=== PATIENT | male | born 1980 | race Caucasian/White ===

== ENCOUNTER 2021-06-20 18:01 | Emergency (ER) | payer BC ==
[2021-06-20 18:14] VITALS: BP 163/111; PULSE 96; RESP 18; TEMP 98.2
[2021-06-20] MEDS ORDERED: FLUORESCEIN STRIPS 1 MG STRIP BOTH EYES ONE (19:54)
[2021-06-20] MEDS ORDERED: PROPARACAINE 0.5% OPHTH DROPS 15 ML BTL BOTH EYES SCH (20:00)
[2021-06-20] MEDS ORDERED: ERYTHROMYCIN 5 MG/GM OPHTH OINT 1 GM TUBE LEFT EYE STA (20:13)
--- NOTE | 2021-06-20 20:18 | ED ---
General Adult HPI - General Chief complaint: Eye Problems Stated complaint: Metal in L Eye Time Seen by Provider: 06/20/21 19:54 Source: patient, RN notes reviewed, old records reviewed Mode of arrival: ambulatory Limitations: no limitations - History of Present Illness Initial comments: 40-year-old male with left eye foreign body. Patient was working under a camper, he got a suspected foreign body in the left eye he was wearing safety glasses at the time. He's had pain with eye movement since the onset. No other injuries reported. - Related Data Allergies Allergy/AdvReac Type Severity Reaction Status Date / Time No Known Allergies Allergy Verified 06/20/21 18:14 Review of Systems ROS Statement: Those systems with pertinent positive or pertinent negative responses have been documented in the HPI. ROS Other: All systems not noted in ROS Statement are negative. Past Medical History Past Medical History: No Reported History History of Any Multi-Drug Resistant Organisms: None Reported Past Surgical History: No Surgical Hx Reported Past Psychological History: No Psychological Hx Reported Smoking Status: Never smoker Past Alcohol Use History: Occasional Past Drug Use History: None Reported General Exam Limitations: no limitations General appearance: alert, in no apparent distress Head exam: Present: atraumatic, normocephalic Eye exam: Present: PERRL, conjunctival injection, other (No corneal abrasion, negative fluorescein exam, negative Theodora's test) ENT exam: Present: normal exam Neck exam: Present: normal inspection Respiratory exam: Present: normal lung sounds bilaterally. Absent: respiratory distress, wheezes Cardiovascular Exam: Present: regular rate, normal rhythm GI/Abdominal exam: Present: soft. Absent: distended, tenderness, guarding Extremities exam: Present: normal inspection, normal capillary refill. Absent: pedal edema Neurological exam: Present: alert, oriented X3. Absent: CN II-XII intact, motor sensory deficit Psychiatric exam: Present: normal affect, normal mood Skin exam: Present: warm, dry, intact. Absent: cyanosis, diaphoretic Course Vital Signs 06/20/21 18:10 Temperature 98.2 F Pulse Rate 96 Respiratory 18 Rate Blood Pressure 163/111 O2 Sat by Pulse 97 Oximetry Procedures - Forgein Body Removal Eye Site: Left Location in eye(s): inner surface of the upper lid Anesthetic Used: Proparacaine Eye Exam Technique: Donald Lamp, Fluorescein Foreign Body Suspected: Metal Forgein Body Removal Technique: Cotton Swab, Irrigation Remaining Debris: No Patient Tolerated: no complications Medical Decision Making - Medical Decision Making 40-year-old male with foreign body in the left eye. Very small piece of metal was removed from the undersurface of the upper lid with cotton swab and irrig ation. There is no corneal abrasion. The eye was irrigated and rechecked there was no persistent foreign body visualized. Patient given erythromycin ointment. Will follow-up with primary care physician. Disposition Clinical Impression: Foreign body of left eye Disposition: HOME SELF-CARE Condition: Good Instructions (If sedation given, give patient instructions): Eye Foreign Body (ED) Is patient prescribed a controlled substance at d/c from ED?: No Referrals: None,Stated [Primary Care Provider] - 1-2 days Yohan Khan MD [STAFF PHYSICIAN] - 1-2 days Time of Disposition: 20:18
== END 2021-06-20 20:43 | disposition home or self-care (01) ==
LOC: EC 18:01
DX: T15.92XA Foreign body on external eye, part unspecified, left eye, initial encounter (principal); W22.8XXA Striking against or struck by other objects, initial encounter
CPT/HCPCS: 67938; 99283

== ENCOUNTER 2024-08-01 19:35 | Emergency (ER) | payer BC ==
[2024-08-01 19:57] VITALS: BP 131/93; RESP 18; TEMP 98.6
--- NOTE | 2024-08-01 20:17 | ED ---
General Adult HPI - General Chief complaint: ENT Stated complaint: Difficulty swallowing, Throat pain Time Seen by Provider: 08/01/24 20:02 Source: patient, RN notes reviewed, old records reviewed Mode of arrival: ambulatory - History of Present Illness Initial comments: 43-year-old male with choking episode requiring the Heimlich maneuver and sensation of upper esophageal obstruction. Patient is able to talk but he is not able to swallow his secretions. This occurred just prior to arrival. He has had prior issues similar to this in the past but not requiring medical att ention. He has not previously had upper GI endoscopy. No preceding symptoms. - Related Data Allergies Allergy/AdvReac Type Severity Reaction Status Date / Time No Known Allergies Allergy Verified 08/01/24 19:57 Review of Systems ROS Statement: Those systems with pertinent positive or pertinent negative responses have been documented in the HPI. ROS Other: All systems not noted in ROS Statement are negative. Past Medical History Past Medical History: No Reported History History of Any Multi-Drug Resistant Organisms: None Reported Past Surgical History: No Surgical Hx Reported Past Psychological History: No Psychological Hx Reported Smoking Status: Never smoker Past Alcohol Use History: Occasional Past Drug Use History: None Reported General Exam General appearance: alert, in no apparent distress Head exam: Present: atraumatic, normocephalic Eye exam: Present: normal appearance, PERRL ENT exam: Present: normal oropharynx, other (Patient sitting up, spitting his se cretions) Respiratory exam: Present: normal lung sounds bilaterally. Absent: respiratory distress, wheezes, stridor Cardiovascular Exam: Present: regular rate, normal rhythm GI/Abdominal exam: Present: soft. Absent: distended, tenderness Neurological exam: Present: alert, oriented X3 Psychiatric exam: Present: anxious Skin exam: Present: warm, dry, intact Course Vital Signs 08/01/24 19:53 Temperature 98.6 F Pulse Rate 71 Respiratory 18 Rate Blood Pressure 131/93 O2 Sat by Pulse 98 Oximetry Medical Decision Making - Medical Decision Making Was pt. sent in by a medical professional or institution (, MARINE, CHECK WRITER SALESPERSON, urgent care, hospital, or usp...) When possible be specific @ -No Did you speak to anyone other than the patient for history (EMS, parent, family, police, friend...)? What history was obtained from this source @ -No Did you review nursing and triage notes (agree or disagree)? Why? @ -I reviewed and agree with nursing and triage notes Were old charts reviewed (outside hosp., previous admission, EMS record, old EKG, old radiological studies, urgent care reports/EKG's, usp records)? Report findings @ -No old charts were reviewed Differential Diagnosis esophageal food impaction, upper airway obstruction, esophageal mass or stricture EKG interpreted by me (3pts min.). @ -As above X-rays interpreted by me (1pt min.). @ -None done CT interpreted by me (1pt min.). @CT is negative for upper airway obstruction or proximal esophageal obstruction there is fluid pooling in the lower esophagus on CT neck U/S interpreted by me (1pt. min.). @ -None done What testing was considered but not performed or refused? (CT, X-rays, U/S, labs)? Why? @ -None What meds were considered but not given or refused? Why? @ -None Did you discuss the management of the patient with other professionals (professionals i.e. , PA, CHECK WRITER SALESPERSON, lab, RT, psych nurse, social service technician, probate lawyer, teacher, information security officer, bilingual case manager)? Give summary @ -No Was smoking cessation discussed for >3mins.? @ -No Was critical care preformed (if so, how long)? @ -No Were there social determinants of health that impacted care today? How? (Homelessness, low income, unemployed, alcoholism, drug addiction, transportation, low edu. Level, literacy, decrease access to med. care, long-term, rehab)? @ -No Was there de-escalation of care discussed even if they declined (Discuss DNR or withdrawal of care, Hospice)? DNR status @ -No What co-morbidities impacted this encounter? (DM, HTN, Smoking, COPD, CAD, Cancer, CVA, ARF, Chemo, Hep., AIDS, mental health diagnosis, sleep apnea, morbid obesity)? @ -[Previous episodes of esophageal food impaction and choking Was patient admitted / discharged? Hospital course, mention meds given and route, prescriptions, significant lab abnormalities, going to OR and other pertinent info. @ -43-year-old male with suspected esophageal food impaction. Patient maintaining airway, no stridor. He is sitting up spitting his secretions. I did perform CT of the upper airway and esophagus which showed fluid pooling in the mid to lower esophagus. Patient given glucagon and Valium and is able to pass obstruction and able to drink normally. I do recommend he follows with gastroenterology regarding this recurrent symptom. Undiagnosed new problem with uncertain prognosis? @ -[No Drug Therapy requiring intensive monitoring for toxicity (Heparin, Nitro, Insulin, Cardizem)? @ -No Were any procedures done? @ -No Diagnosis/symptom? @Esophageal food impaction Acute, or Chronic, or Acute on Chronic? @Acute Uncomplicated (without systemic symptoms) or Complicated (systemic symptoms)? @ -Default Side effects of treatment? @ -No Exacerbation, Progression, or Severe Exacerbation? @ -No Poses a threat to life or bodily function? How? (Chest pain, [place], [place], pneumonia, PE, COPD, DKA, ARF, appy, cholecystitis, CVA, Diverticulitis, Homicidal, Suicidal, threat to staff... and all critical care pts) @ -No Disposition Clinical Impression: Esophageal obstruction due to food impaction Disposition: HOME SELF-CARE Condition: Good Instructions (If sedation given, give patient instructions): Esophageal Foreign Body (ED) Is patient prescribed a controlled substance at d/c from ED?: No Referrals: Nonstaff,Physician [Primary Care Provider] - 1-2 days April Baugh MD [STAFF PHYSICIAN] - 1-2 days Time of Disposition: 20:52
[2024-08-01] MEDS: GLUCAGON 1 MG/ML VIAL IVP STA (20:31)
--- NOTE | 2024-08-01 21:07 | CT ---
EXAMINATION TYPE: CT soft tissue neck wo con DATE OF EXAM: 08/01/2024 8:27 PM COMPARISON: None. CLINICAL INDICATION: Male, 43 years old with history of Possible esophageal foreign body, pt choked o n a piece of meat tonight, cannot stop spitting/coughing up TECHNIQUE: Standard enhanced CT of the neck. Axial sections with coronal and sagittal reformats were obtained. Contrast used: mL of , (None if empty) Oral contrast used: (None if empty) CT DLP: 248.7 mGycm, Automated exposure control for dose reduction was used. FINDINGS: Brain: Visualized portions are grossly unremarkable. Orbits: Unremarkable Sinuses: Grossly unremarkable. Spaces of the neck: Clear and symmetric. Musculoskeletal: No acute osseous pathology. Degenerative disc disease changes of the visualized spin e are present. Elongated styloid processes bilaterally. Lymph nodes: Multiple nonenlarged lymph nodes are seen along both anterior chains of the neck. Vascular structures: Visualized major arteries are patent without evidence of aneurysm. Thoracic Inlet/airway: Airway is patent. Layering debris within the visualized esophagus with fluid air level. No obvious obstruction in the upper esophagus. Soft tissues/Thyroid: Thyroid and remainder of the soft tissues are unremarkable. IMPRESSION: Layering debris within the visualized esophagus. Correlate for esophageal dysmotility versus reflux b urst stuck foreign body within the distal esophagus. [facility], , 08/01/2024 9:04 PM
[2024-08-01 21:26] VITALS: PULSE 74
== END 2024-08-01 21:26 | disposition home or self-care (01) ==
LOC: EC 19:35
DX: T18.128A Food in esophagus causing other injury, initial encounter (principal); W44.F3XA Food entering into or through a natural orifice, initial encounter
CPT/HCPCS: 70490; 99284; 96374; 96375; J1610; J3360